=== PATIENT | female | born 1965 | race American Indian/Alaskan Native ===

== ENCOUNTER 2019-12-20 15:52 | Emergency (ER) | payer SELFPAY ==
[2019-12-20 16:22] VITALS: BP 153/66
[2019-12-20] MEDS ORDERED: KETOROLAC 60 MG/2 ML INJ IM ONE (16:51)
[2019-12-20] MEDS ORDERED: dexAMETHasone 20 MG/5 ML VIAL IM ONE (16:51)
--- NOTE | 2019-12-20 17:16 | Emergency Department Report ---
ED Back Pain/Injury HPI - General Chief Complaint: Back Pain/Injury Stated Complaint: BACK PAINS Time Seen by Provider: 12/20/19 16:40 Source: patient Limitations: No Limitations - History of Present Illness Initial Comments: Patient is a 54-year-old female presents emergency room with complaints of lower back pain that began 4 days ago. She denies any fall or injury. She states that the pain radiates down both her legs. She denies any nausea, vomiting, diarrhea, fever, urinary symptoms, numbness, weakness, bowel or bladder incontinence. She has a past medical history of a laminectomy of L5 and S1 in 2001. She denies any allergies to medications. pt is ambulatory. - Related Data Previous Rx's Medication Instructions Recorded Last Taken Type Menthol/Camphor [Clarkia [place] 1 applicatio TP BID #8 oint...g. 12/20/19 Unknown Rx Ointment] Naproxen [EC-Naprosyn] 500 mg PO BID PRN #14 tablet. 12/20/19 Unknown Rx methOCARBAMOL [Robaxin TAB] 500 mg PO BID PRN #14 tab 12/20/19 Unknown Rx Allergies Allergy/AdvReac Type Severity Reaction Status Date / Time No Known Allergies Allergy Unverified 12/20/19 16:06 ED Review of Systems ROS: Stated complaint: BACK PAINS Other details as noted in HPI Comment: All other systems reviewed and negative ED Past Medical Hx - Past Medical History Previous Medical History?: No - Surgical History Past Surgical History?: Yes Additional Surgical History: Back surgery. Rotator cuff surgery - Medications Home Medications: Home Medications Medication Instructions Recorded Confirmed Last Taken Type Menthol/Camphor [Clarkia [place] 1 applicatio TP BID #8 oint...g. 12/20/19 Unknown Rx Ointment] Naproxen [EC-Naprosyn] 500 mg PO BID PRN #14 tablet. 12/20/19 Unknown Rx methOCARBAMOL [Robaxin TAB] 500 mg PO BID PRN #14 tab 12/20/19 Unknown Rx ED Physical Exam - General Limitations: No Limitations General appearance: alert, in no apparent distress - Head Head exam: Present: atraumatic, normocephalic - Eye Eye exam: Present: normal appearance - ENT ENT exam: Present: mucous membranes moist - Neck Neck exam: Present: normal inspection, full ROM. Absent: tenderness - Respiratory Respiratory exam: Present: normal lung sounds bilaterally. Absent: respiratory distress, wheezes, rales, rhonchi, stridor, chest wall tenderness, accessory muscle use, decreased breath sounds, prolonged expiratory - Cardiovascular Cardiovascular Exam: Present: regular rate, normal rhythm, normal heart sounds. Absent: systolic murmur, diastolic murmur, rubs, gallop - Back Exam Back exam: Present: normal inspection, full ROM, paraspinal tenderness (bilateral lumbar paraspinal muscular ttp, no midline C-spine, T-spine or L-spi ne ttp). Absent: vertebral tenderness - Neurological Exam Neurological exam: Present: alert, oriented X3, CN II-XII intact, normal gait. Absent: motor sensory deficit - Psychiatric Psychiatric exam: Present: normal affect, normal mood - Skin Skin exam: Present: warm, dry, intact ED Course Vital Signs 12/20/19 16:05 Temperature 99.1 F Pulse Rate 76 Respiratory 18 Rate Blood Pressure 153/66 O2 Sat by Pulse 97 Oximetry ED Medical Decision Making - Medical Decision Making Patient is a 54-year-old female presents emergency room with complaints of lower back pain that began 4 days ago. She denies any fall or injury. She states that the pain radiates down both her legs. She denies any nausea, vomiting, diarrhea, fever, urinary symptoms, numbness, weakness, bowel or bladder incontinence. She has a past medical history of a laminectomy of L5 and S1 in 2001. She denies any allergies to medications. pt is ambulatory. VSS. on exam: bilateral lumbar paraspinal muscular ttp, no midline C-spine, T-spine or L-spine ttp, no focal neuro deficits. Presentation and examination appear most consistent with sciatica. Patient has no midline tenderness, no focal neuro deficits. She has no red flag warning signs of back pain, no trauma, no unexplained weight loss, no neuro deficits, no fever, no IV drug use, no steroid use, no history of cancer. Patient given dexamethasone IM and Toradol IM while in the emergency department and symptoms improved. Patient given prescription for naproxen, Robaxin, [place] balm ointment. Advised patient Please use medicat ion as prescribed. Do not drive or operate heavy machinery while taking muscle relaxer Robaxin. May use ice pack, heating pad, rest, Epson salt bath. Please do stretches for sciatica. Follow-up with a primary care doctor. Follow-up with your spine doctor. Return to emergency room for any new or worsening symptoms. - Differential Diagnosis sciatica, lumbar radiculopathy, herniated/bulging disc, DDD, spondylolisthe Critical care attestation.: If time is entered above; I have spent that time in minutes in the direct care of this critically ill patient, excluding procedure time. ED Disposition Clinical Impression: Low back pain Qualifiers: Chronicity: acute Back pain laterality: bilateral Sciatica presence: with sciatica Sciatica laterality: bilateral sciatica Qualified Code(s): M54.42 - Lumbago with sciatica, left side Disposition: TO HOME OR SELFCARE Is pt being admited?: No Does the pt Need Aspirin: No Condition: Stable Instructions: Sciatica (ED), Acute Low Back Pain (ED) Additional Instructions: Please use medication as prescribed. Do not drive or operate heavy machinery while taking muscle relaxer Robaxin. May use ice pack, heating pad, rest, Epson salt bath. Please do stretches for sciatica. Follow-up with a primary care doctor. Follow-up with your spine doctor. Return to emergency room for any new or worsening symptoms. Prescriptions: Naproxen [EC-Naprosyn] 500 mg PO BID PRN #14 tablet.dr PRN Reason: pain methOCARBAMOL [Robaxin TAB] 500 mg PO BID PRN #14 tab PRN Reason: pain Menthol/Camphor [Clarkia [place] Ointment] 1 applicatio TP BID #8 oint...g. Referrals: your, primary care doctor [Other] - 2-3 Days your, spine doctor [Other] - 2-3 Days Time of Disposition: 17:14 Print Language: [place]
== END 2019-12-20 17:28 | disposition home or self-care (01) ==
LOC: ED 15:52
DX: M54.5 Low back pain (principal); Z79.899 Other long term (current) drug therapy; Z98.890 Other specified postprocedural states
CPT/HCPCS: 96372; 99281; J1100; J1885